=== PATIENT | female | born 1950 | race Caucasian/White ===

== ENCOUNTER 2020-07-09 15:02 | Observation (INO) ==
[2020-07-09 15:42] LABS: Basophils % 0.2 % (0.0-0.8); Eosinophils # 0.1 10*3/uL (0.0-0.87); Eosinophils % 0.9 % (0.00-10.9); Hematocrit 45.4 VOL% (35.7-47.0); Hemoglobin 15.4 GM/DL (12.0-16.0); Immature Granulocytes % 0.2 %; Immature Granulocytes Absolute 0.01 #; Lymphocytes # 1.6 10*3/uL (1.4-4.0); Lymphocytes % 28.3 % (21.3-54.2); Mean Corpuscular HGB Conc 33.9 GM/DL (32-36); Mean Corpuscular Volume 93.4 FL (87-102); Mean Platelet Volume 10.5 FL (9.6-12.0); Monocytes % 7.4 % (1.7-12.7); Platelet Count 215 T/CUMM (130-400); Red Blood Count 4.86 MC/CUMM (3.8-5.5); Red Cell Distribution Width 12.2 % (9.3-17.3); White Blood Count 5.7 T/CUMM (4-12)
[2020-07-09] MEDS ORDERED: ASPIRIN 325 MG TABLET PO STA (15:50)
[2020-07-09] MEDS ORDERED: ASPIRIN 325 MG TABLET ONE (15:50)
[2020-07-09] MEDS ORDERED: cloNIDine 0.1 MG TABLET ONE (15:50)
[2020-07-09] MEDS ORDERED: cloNIDine 0.1 MG TABLET PO STA (15:50)
[2020-07-09 15:52] LABS: PT Patient Result 10.9 SECS (9.8-11.9)
[2020-07-09 16:03] LABS: Albumin 3.5 G/DL (3.4-5.0); Bilirubin,Total 1.1 MG/DL (0.2-1.0); Calcium 9.1 MG/DL (8.5-10.1); Osmolality,Calculated 276.5 MOS/KG (273-304); Total Protein 7.3 G/DL (6.4-8.3)
[2020-07-09] MEDS ORDERED: LABETALOL 20 MG/4 ML SYRINGE IV STA (16:06)
[2020-07-09] MEDS ORDERED: LABETALOL 20 MG/4 ML SYRINGE IV ONE (16:06)
[2020-07-09] MEDS ORDERED: GLUCAGON 1 MG VIAL IM PRN (17:16)
[2020-07-09] MEDS ORDERED: ACETAMINOPHEN 325 MG TABLET PO PRN (17:16)
[2020-07-09] MEDS ORDERED: ONDANSETRON 4 MG/2 ML VIAL IV PRN (17:16)
[2020-07-09] MEDS ORDERED: DEXTROSE 50% 25 GM/50 ML VIAL IV PRN (17:16)
[2020-07-09] MEDS ORDERED: LABETALOL 20 MG/4 ML SYRINGE IV PRN (17:20)
[2020-07-09] MEDS: amLODIPine 10 MG TABLET PO SCH (19:11)
[2020-07-09] MEDS ORDERED: ROSUVASTATIN 20 MG TABLET PO SCH (21:00)
[2020-07-10 05:24] LABS: Basophils % 0.3 % (0.0-0.8); Eosinophils # 0.1 10*3/uL (0.0-0.87); Hematocrit 38.3 VOL% (35.7-47.0); Hemoglobin 13.5 GM/DL (12.0-16.0); Immature Granulocytes % 0.2 %; Immature Granulocytes Absolute 0.01 #; Lymphocytes # 2.5 10*3/uL (1.4-4.0); Lymphocytes % 40.5 % (21.3-54.2); Mean Corpuscular HGB Conc 35.2 GM/DL (32-36); Mean Corpuscular Volume 92.7 FL (87-102); Mean Platelet Volume 10.8 FL (9.6-12.0); Monocytes % 11.5 % (1.7-12.7); Neutrophils % 46.5 % (38.7-73.9); Platelet Count 207 T/CUMM (130-400); Red Blood Count 4.13 MC/CUMM (3.8-5.5); Red Cell Distribution Width 12.2 % (9.3-17.3); White Blood Count 6.1 T/CUMM (4-12)
[2020-07-10 05:37] LABS: Risk Ratio 3.33; VLDL CHOLESTEROL 23.6 MG/DL
[2020-07-10] MEDS: amLODIPine 10 MG TABLET PO SCH (08:36)
[2020-07-10] MEDS ORDERED: ASPIRIN EC 81 MG TABLET PO SCH (09:00)
[2020-07-10 12:13] VITALS: BP 188/76
== END 2020-07-10 14:28 | disposition home or self-care (01) ==
LOC: EDUNIT# → EDBD → N.EDINP 15:02 → N.ED 15:02 → N.TELES 18:45
PROVIDERS: ADMIT Family Medicine; ATTEND Family Medicine